=== PATIENT | male | born 1965 | race Caucasian/White ===

== ENCOUNTER 2016-07-23 12:54 | Emergency (ER) | payer OTHER ==
[~2016-07-23] VITALS: Ht 185.4 cm; Wt 102.1 kg
[~2016-07-23 12:54] MED LIST: CLONAZEPAM1 MG PO; CYCLOBENZAPRINE10 M1 PO; FLEXERIL 5MG TAB5 MG PO; FLEXERIL10 MG PO; FLUOXETINE20 MG PO; HYDROXYZINE PAM50 M1 PO; MOBIC 15MG15 MG PO; MOBIC7.5 M1 PO; MOTRIN800 MG PO; NEURONTIN600 M1 PO; NEXIUM40 M1 PO; PERCOCET 325 MG1 TA2 PO; PRINIVIL 5MG5 MG PO; PROZAC20 M2 PO; QUETIAPINE FUMA25 M1 PO; SIMVASTATIN20 MG PO; TRAMADOL50 MG PO; TYLENOL #31 TAB PO
[2016-07-23 12:58] VITALS: BP 160/113
--- NOTE | 2016-07-23 13:12 | ED HAND/WRIST INJURY COMPLAINT ---
History of Present Illness General Chief Complaint: Laceration Procedure Stated Complaint: LAC TO R INDEX Source: patient, old records Exam Limitations: no limitations Vital Signs & Intake/Output Vital Signs & Intake/Output Vital Signs Date Time Temp Pulse Resp B/P Pulse O2 O2 Flow FiO2 Ox Delivery Rate 07/23 1258 97.8 65 20 160/113 98 Room Air Allergies Coded Allergies: NO KNOWN ALLERGIES (12/21/15) Reconcile Medications Esomeprazole (Nexium) 40 MG CAPSULE.DR 1 CAP PO DAILY GI (Reported) Fluoxetine HCl (Prozac) 20 MG CAPSULE 3 CAP PO QAM MENTAL HEALTH (Reported) Gabapentin (Neurontin) 600 MG TABLET 1 TAB PO TID UNKNOWN (Reported) Hydroxyzine Pamoate 50 MG CAPSULE 1 CAP PO Q4-6 PRN PRN UNKNOWN (Reported) Ibuprofen (Motrin) 800 MG TAB 1 TAB PO TID PAIN Lisinopril (Prinivil) 5 MG TABLET 1 TAB PO DAILY BP (Reported) Quetiapine Fumarate 25 MG TABLET 1 TAB PO QPM MENTAL HEALTH (Reported) Simvastatin (Zocor) 20 MG TAB 1 TAB PO QPM CHOLESTEROL (Reported) Triage Note: PT PRESENTS TO ER WITH LACERATION TO RIGHT INDEX FINGER. PT STATES HE WAS REMOVING A DECAL OF A WINDOW WITH A RAZOR BLADE WHEN THE BLADE SLIPPED AND CUT HIS FINGER. Triage Nurses Notes Reviewed? yes Occurred: just prior to arrival Duration: hour(s): (1), constant Timing: single episode today Injury Environment: neighbor's Severity: mild Severity Numbers: 3 Pain/Injury Location: Right: 2nd finger. Context: laceration Method of Injury: laceration No Modifying Factors: none Associated Symptoms: none HPI: 51-year-old male presents emergency room status post sustaining laceration to his right second finger just prior to arrival 1 hour ago now presents complaining sudden onset aching throbbing pain to the distal aspect of the finger. He states that he was using a razor blade to scrape decals off of a window when the razor blade slipped and sustained laceration to his finger. There is no other injury. He is right-hand dominant. He has not taken anything for pain, his last tetanus is unknown.. He denies any difficulty with bending the finger no numbness or tingling (CATY CANCHOLA,NESTOR) Past History Travel History Traveled to [place] past 21 day No Medical History Any Pertinent Medical History? see below for history Neurological: NONE EENT: NONE Cardiovascular: hypertension, hyperlipidemia Respiratory: NONE Gastrointestinal: NONE Hepatic: NONE Renal: NONE Musculoskeletal: chronic back pain, disk herniation, osteoarthritis, BULGING DISK DDD PINCHED NERVE Psychiatric: anxiety, chronic pain disorder, depression Endocrine: NIDDM, TYPE 2 dm, DIET CONTROLLED Blood Disorders: NONE Cancer(s): NONE CHILD ADVOCATE/Reproductive: NONE Tetanus Vaccine: 01/15/14 Surgical History Surgical History: non-contributory Psychosocial History What is your primary language Ethiopian Tobacco Use: Quit >30 days ago Family History Hx Contributory? No (NESTOR JONES) Review of Systems Review of Systems Constitutional: Reports: see HPI. All Other Systems: Reviewed and Negative Comments Review of systems: See HPI, All other systems negative. Constitutional, no chills no fever, no malaise HEENT: No visual changes no sore throat no congestion, Cardiovascular: No chest pain , no palpitation Skin, no rashes, no change in skin Respiratory: No dyspnea no cough no sputum GI: No nausea no vomiting, no diarrhea, : No dysuria Muscle skeletal: No joint pain, no joint swelling, no back pain, no neck pain, Neurologic: No numbness no headache Psych: No stress Heme/endocrine: No bruising no bleeding Immunology: No lymphadenopathy (NESTOR JONES) Physical Exam Physical Exam General Appearance: well developed/nourished, no apparent distress, alert, awake Hand Left: normal inspection, normal range of motion Hand Right: lacerations, 2nd finger Comments: Well-developed well-nourished patient in no apparent distress. HEENT: Atraumatic, extraocular motion intact Neck: Supple, FROM Back: FROM Respiratory: No respiratory distress. Patient speaking in full complete sentences. Breath sounds clear to auscultation bilaterally: NO W/R/R Shoulder: Atraumatic/Stable. FROM . Elbow: Atraumatic/stable. FROM. No laxity Upper arm/Forearm: Atraumatic. Nontender. No edema, 5 out of 5 smooth stucco resurfacer strength noted to bilateral upper extremities Hand/Wrist: There is a superficial one centimeters laceration noted to the distal aspect of the right second finger not involving the nail there is no active bleeding, sensation is intact, capillary refills within normal limits, FROM of all fingers Pulses: Normal/equal radial pulses bilaterally. Brisk cap refill Lower Extremities: full range of motion Neuro: Alert and oriented x3 Skin: Warm & dry;No appreciable rash on exposed skin Psych: Mood affect normal, normal memory normal judgment. Diagram Hands Front 1) Laceration as described above (NESTOR JONES) Progress Differential Diagnosis: contusion, dislocation, fracture, sprain, tendon injury laceration Plan of Care: Current Medications Sig/Tarik Start time Last Medication Dose Stop Time Status Admin Tetanus/Diphtheria 0.5 ML ONCE ONE 07/23 1314 UNVr Toxoids Adsorbed 07/23 131 (Decavac) Wound was thoroughly irrigated with Betadine peroxide and normal saline. Dermabond was applied sterile dressing was applied patient neurovascularly intact after application patient tolerated procedure well discussed the possibility of foreign body, tendon injury not seen on examination still exist return with any concerns or signs of infection advise close follow-up with his primary care tetanus IM ordered he feels couple plan cleared for discharge (NESTOR JONES) Departure Departure Time of Disposition: 1309 Disposition: HOME OR SELF CARE Condition: Stable Clinical Impression Primary Impression: Finger laceration Referrals: MANSOOR MOREL MD (PCP/Family) Additional Instructions: keep area clean and covered. the possibility of a foreign body or tendon injury not seen on examination exists. follow up with your pmd next week or return with any concerns or signs of infection: redness,warmth,swelling, discharge fever or chills. Departure Forms: Customer Survey General Discharge Information (NESTOR JONES) PA/WINDOWS SYSTEMS ADMIN Co-Sign Statement Statement: ED Attending supervision documentation- [] I saw and evaluated the patient. I have also reviewed all the pertinent lab results and diagnostic results. I agree with the findings and the plan of care as documented in the PA's/WINDOWS SYSTEMS ADMIN's documentation. [X] I have reviewed the ED Record and agree with the PA's/WINDOWS SYSTEMS ADMIN's documentation. [] Additions or exceptions (if any) to the PAs/WINDOWS SYSTEMS ADMIN's note and plan are summarized below: [] (SAMEERA RODRIGUEZ DO) Procedures Laceration/Wound Repair Laceration/Wound Repair: Wound Location: upper extremity (r 2nd finger) Wound's Depth, Shape: linear, superficial Wound Length (cm): 1 Wound Explored: clean, no foreign body removed, irrigated extensively Irrigated w/ Saline (ccs): 100 Betadine Prep? Yes Wound Repaired With: Dermabond Sterile Dressing Applied: Yes Date of Last Tetanus: 07/23/16 Tetanus Status: not up to date (CATY CANCHOLA,NESTOR)
== END 2016-07-23 13:27 ==
LOC: ERH 12:54
DX: S61.210A Laceration without foreign body of right index finger without damage to nail, initial encounter (principal); W26.8XXA Contact with other sharp object(s), not elsewhere classified, initial encounter; Y93.89 Activity, other specified; Y92.009 Unspecified place in unspecified non-institutional (private) residence as the place of occurrence of the external cause